=== PATIENT | female | born 1990 | race Caucasian/White ===

== ENCOUNTER → 2021-09-07 14:51 | Outpatient (CLI) | payer BC, SELFPAY ==
--- NOTE | ~2021-09-07 | US_ITS ---
EXAMINATION: US OB <= 14 weeks fetus DATE: 09/07/2021 15:18 INDICATION: Evaluate gestational dates and viability TECHNIQUE: Real-time transabdominal obstetric ultrasound. FINDINGS: No prior studies for comparison. The uterus measures 9.7 x 6.4 x 6.5 cm. There is an intrauterine gestational sac, with pole yeni ntified. There is a possible small subchorionic hemorrhage measuring 1.7 x 1.1 x 1 cm. The crown rump length measures 2.23 cm, which correlates with a estimated gestational age of 9 weeks 0 days. Feta l heart tones are identified measuring 181 bpm. There is a right corpus luteal cyst measuring 1.8 cm. The left ovary is unremarkable. IMPRESSION: 1. SL IUP with an EGA of 9 weeks, 0 days (EDC by current ultrasound of 04/12/2022). 2: Possible small subchorionic hemorrhage. Reviewed, dictated and finalized at location A. IMPRESSION: 1. SL IUP with an EGA of 9 weeks, 0 days (EDC by current ultrasound of 3). 2: Possible small subchorionic hemorrhage.
== END ==
PROVIDERS: PCP Nurse Practitioner Family; Visit Provider Advanced Practice Midwife
DX: Z36.9 Encounter for antenatal screening, unspecified (principal); Z3A.09 9 weeks gestation of pregnancy
CPT/HCPCS: 76801

== ENCOUNTER → 2021-09-21 12:41 | Outpatient (CLI) | payer BC, SELFPAY ==
--- NOTE | ~2021-09-21 | US_ITS ---
EXAMINATION: US OB <= 14 weeks fetus DATE: 09/21/2021 12:58 INDICATION: Subchorionic hematoma follow-up, first trimester TECHNIQUE: Real-time pelvic transabdominal and transvaginal ultrasound was performed. COMPARISON: 09/07/2021 FINDINGS: The uterus measures 10.9 x 8.2 x 7.5 cm. There is an intrauterine gestational sac. No pers istent subchorionic hematoma is identified. A yolk sac is identified. heart motion is identifie d measuring 172 beats per minute (bpm) by M-mode Doppler. The crown rump length measures 4.1 cm , which correlates with an estimated gestational age of 11 weeks and 0 day(s) (+/-) 7 day(s). The ovaries are not visualized however no adnexal abnormality is seen. There is no free fluid in the pelvis. IMPRESSION: 1. Live intrauterine with an estimated gestational age of 11 weeks and 0 day(s) (+/-) 7 day (s) and an estimated delivery date of 04/12/2022. 2. No subchorionic hematoma identified. Reviewed, dictated and finalized at location B. IMPRESSION: 1. Live intrauterine with an estimated gestational age of 11 weeks an d 0 day(s) (+/-) 7 day(s) and an estimated delivery date of 04/12/2022. 2. No subchorionic hematoma identified.
== END ==
PROVIDERS: PCP Nurse Practitioner Family; Visit Provider Obstetrics & Gynecology Gynecology
DX: O36.8910 Maternal care for other specified fetal problems, first trimester, not applicable or unspecified (principal); Z3A.11 11 weeks gestation of pregnancy
CPT/HCPCS: 76801

== ENCOUNTER → 2021-11-24 16:04 | Outpatient (CLI) | payer BC, SELFPAY ==
--- NOTE | ~2021-11-24 | US_ITS ---
EXAMINATION: US OB /maternal detail DATE: 11/24/2021 16:54 INDICATION: Second trimester anatomic survey TECHNIQUE: Real-time ultrasound of the pelvis was performed. COMPARISON: None. FINDINGS: There is a single living fetus in transverse lie. The placenta is posterior and 3.6 cm from the inter nal cervical os. The cervical length is 4.1 cm. heart rate is 152 beats per minute (bpm). Feta l cardiac activity and movement are noted. The amniotic fluid index is subjectively normal. The following anatomy was identified as normal: 4 chamber heart 3 vessel cord cord insertion kidneys urinary bladder stomach spine diaphragm ventricles cisterna magna cerebellum The following biometric data were obtained: Biparietal diameter (BPD): 4.7 cm; head circumference (HC): 17.3 cm; abdominal circumference (AC): 15 .4 cm; femur length (FL): 3.1 cm. These measurements are concordant. Estimated weight is 329 g +/- 49 g, which correlates with the 49th percentile when 04/13/2022 is used as estimated date of delivery. As single measurements, these parameters are each equal to the following estimated gestational ages w ith ranges of +/- 2 standard deviations: BPD: 20 weeks 0 days ( 18 weeks 2 days - 21 weeks 5 days). HC: 19 weeks 6 days ( 18 weeks 3 days - 21 weeks 2 days). AC: 20 weeks 4 days ( 18 weeks 4 days - 22 weeks 5 days). FL: 19 weeks 4 days ( 17 weeks 5 days - 21 weeks 2 days). estimated gestational age based solely on measurements from this exam is 20 weeks 0 days +/- 1 weeks 3 days. IMPRESSION: 1. Single living fetus in transverse lie. 2. Estimated weight is 329 g +/- 49 g, which correlates with the 49th percentile when 04/13/2022 is used as estimated date of delivery. Reviewed, dictated and finalized at location A. IMPRESSION: 1. Single living fetus in transverse lie. 2. Estimated weight is 329 g +/- 49 g, which correlates with the 49th per centile when 04/13/2022 is used as estimated date of delivery.
== END ==
PROVIDERS: PCP Nurse Practitioner Family; Visit Provider Advanced Practice Midwife
DX: Z36.9 Encounter for antenatal screening, unspecified (principal); Z3A.20 20 weeks gestation of pregnancy
CPT/HCPCS: 76805